=== PATIENT | female | born 1985 | race Caucasian/White ===

== ENCOUNTER 2020-12-15 08:19 | Emergency (ER) | payer OTHER ==
[~2020-12-15 08:19] MED LIST: COLACE 100MG C100 MG PO; MOBIC15 MG PO; VIBRAMYCIN100 MG PO
== END 2020-12-15 10:08 | disposition home or self-care (01) ==
LOC: ER1 08:19
DX: S91.214A Laceration without foreign body of right lesser toe(s) with damage to nail, initial encounter (principal); F17.210 Nicotine dependence, cigarettes, uncomplicated; Z23 Encounter for immunization; W01.0XXA Fall on same level from slipping, tripping and stumbling without subsequent striking against object, initial encounter; Y92.009 Unspecified place in unspecified non-institutional (private) residence as the place of occurrence of the external cause
CPT/HCPCS: 11760; 73660; 90471; 90715; 99283